=== PATIENT | male | born 1990 | race Caucasian/White ===

== ENCOUNTER 2022-01-18 20:15 | Emergency (ER) | payer BC ==
[~2022-01-18] VITALS: Ht 180.3 cm; Wt 110.2 kg
--- NOTE | 2022-01-18 20:23 | NUR ---
Called first time- no show in Lobby or outside.
[2022-01-18 20:28] VITALS: BP 189/117
--- NOTE | 2022-01-18 22:34 | NUR ---
Patient ambulated to bed 3.
--- NOTE | 2022-01-18 23:07 | NUR ---
31 Y/O MALE BIBS FROM HOME C/O EPIGASTRIC PAIN 10/10 SINCE YESTERDAY AT 1900. PT STATES THE PAIN IS NON RADIATING. DENIES N/V/D, COUGH, FEVER, CP, OR SOB. PT HAS HX OF SAME AND WAS GIVEN NORCO FOR PAIN. A/OX4, GCS-15; UNLABORED BREATHING AND SPEAKING IN FULL SENTENCES; AMBULATORY W/O ASSISTANCE; SKIN PINK/WARM/DRY. HX: HTN NKA MED: HCTZ
[2022-01-18] MEDS ORDERED: DICYCLOMINE HCL LIQUID 20 MG, ALUMINUM HYD/MAG/SIMETHICONE 30 ML, LIDOCAINE VISCOUS 2% ... PO ONE ×3 (23:20)
--- NOTE | 2022-01-18 23:25 | NUR ---
PHARMACEUTICAL COMPOUNDING SUPERVISOR AT BEDSIDE
[2022-01-18] MEDS ORDERED: ALUMINUM HYD/MAG/SIMETHICONE 30 ML UDC ONE (23:29)
[2022-01-18] MEDS ORDERED: DICYCLOMINE HCL LIQUID 10 MG/5 ML UDC ONE (23:29)
[2022-01-18 23:31] LABS: BASOPHILS # (AUTO) 0.1 K/uL (0.00-0.22); BASOPHILS % (AUTO) 0.6 % (0.0-2.0); EOSINOPHILS # (AUTO) 0.3 K/uL (0-0.4); EOSINOPHILS % (AUTO) 2.3 % (0.0-4.0); HEMATOCRIT 51.5 % (36-52); HEMOGLOBIN 18.1 g/dL (12.0-18.0); LYMPHOCYTES # (AUTO) 1.1 K/uL (2.0-11.5); LYMPHOCYTES % (AUTO) 9.8 % (20.5-51.1); MEAN CORPUSCULAR HEMOGLOBIN 32 pg (27-31); MEAN CORPUSCULAR HGB CONC 35 g/dL (33-37); MEAN CORPUSCULAR VOLUME 90.1 fL (80-94); MONOCYTES # (AUTO) 0.7 K/uL (0.8-1.0); MONOCYTES % (AUTO) 6.4 % (1.7-9.3); NEUTROPHILS # (AUTO) 9.1 K/uL (1.8-7.7); NEUTROPHILS % (AUTO) 80.9 % (42.2-75.2); PLATELET COUNT (AUTO) 284 K/uL (140-450); RED BLOOD CELL COUNT(AUTO) 5.71 MIL/uL (4.20-6.10); RED CELL DISTRIBUTION WIDTH 13.1 % (11.6-13.7); WHITE BLOOD COUNT (AUTO) 11.2 K/uL (4.8-10.8)
[2022-01-19 00:19] LABS: ALBUMIN 4.3 g/dL (3.4-5.0); CARBON DIOXIDE 25.7 mmol/L (21-32); CREATININE 0.9 mg/dL (0.6-1.3); POTASSIUM 3.7 mmol/L (3.5-5.1); TOTAL BILIRUBIN 4.4 mg/dL (0.0-1.0)
[2022-01-19] MEDS ORDERED: KETOROLAC 30 MG/ML VIAL IVP ONE (00:40)
[2022-01-19] MEDS ORDERED: NACL 0.9% 1,000 ML IV ONE ×2 (00:40→06:10)
--- NOTE | 2022-01-19 00:56 | NUR ---
Patient taken to CT scan via wheel chair
[2022-01-19] MEDS ORDERED: HYDR-4004 PO (01:34)
--- NOTE | 2022-01-19 01:57 | NUR ---
PT TAKEN TO RADIOLOGY
--- NOTE | 2022-01-19 02:03 | NUR ---
UTRASOUND AT BEDSIDE
--- NOTE | 2022-01-19 03:57 | NUR ---
COVID/TORRIE SWAB COLLECTED AND WALKED TO LAB
--- NOTE | 2022-01-19 07:20 | NUR ---
Report received from HUYEN Alves for transfer of care.
--- NOTE | 2022-01-19 07:24 | NUR ---
Pt report given to GERARDO SIMMONS. Transfer of care at this time.
--- NOTE | 2022-01-19 09:30 | NUR ---
Patient is ambulating to restroom with steady gait.
--- NOTE | 2022-01-19 11:20 | NUR ---
Patient is laying in bed, call light within reach. Patient has needs met by staff. Patient is breathing even and unlabored. Denies any pain or discomfort at this time.
--- NOTE | 2022-01-19 13:00 | NUR ---
Patient is laying in bed, call light within reach. Denies any pain or discomfort. Patient's breathingh even and unlabored. Patient has needs met by staff.
--- NOTE | 2022-01-19 15:14 | NUR ---
[facility] at bedside for transport
--- NOTE | 2022-01-19 15:20 | NUR ---
report given to zulema ochoa for tranfer to [facility]
[2022-01-19 15:23] VITALS: BP 152/99
--- NOTE | 2022-01-19 15:23 | NUR ---
Patient to be transferred to [facility]. Is being transferred due to insurance. Receiving facility has accepting physician and available space. ER physician has signed transfer form. Patient or responsible democrat has agreed to transfer and signed form. Patient belongings inventoried and will be sent with patient. Copy of nursing notes, lab reports, EKG, Physicians Orders and X-rays to be sent with patient. Report called to HUYEN Moralez at receiving facility. ambulance service has been called for transfer. ETA is now.
--- NOTE | 2022-01-19 15:24 | NUR ---
The patient's care was reviewed and supervised by Sofya Willingham RN.
== END 2022-01-19 15:23 | disposition short-term general hospital (02) ==
LOC: MED 20:15
DX: K85.90 Acute pancreatitis without necrosis or infection, unspecified (principal); Z20.822 Contact with and (suspected) exposure to COVID-19; E80.7 Disorder of bilirubin metabolism, unspecified; I10 Essential (primary) hypertension; Z79.899 Other long term (current) drug therapy
CPT/HCPCS: 36415; 74176; 76705; 80053; 83690; 85025; 87426; 96361; 96374; 99285; J1885; J7030; Q0092